=== PATIENT | male | born 1970 | race Two or more races ===

== ENCOUNTER 2025-03-24 10:53 | Inpatient (IN) | payer MEDICAID, OTHER ==
[2025-03-24] MEDS ORDERED: ACETAMINOPHEN TAB 325 MG TAB PO PRN (14:20)
[2025-03-24] MEDS ORDERED: MAGNESIUM HYDROXIDE 2,400 MG/30 ML CUP PO PRN (14:20)
[2025-03-24] MEDS ORDERED: LORazepam 2 MG/ML INJ IM PRN (14:20)
[2025-03-24] MEDS ORDERED: OLANZapine ODT 5 MG TAB PO PRN (14:20)
[2025-03-24] MEDS ORDERED: MAG HYDROX/AL HYDROX/SIMETH 355 ML BOTTLE PO PRN (14:20)
[2025-03-24] MEDS ORDERED: LORazepam 1 MG TAB PO PRN (14:20)
[2025-03-24] MEDS ORDERED: IBUPROFEN 600 MG TAB PO PRN (14:20)
[2025-03-24] MEDS ORDERED: OLANZapine 10 MG VIAL IM PRN (14:23)
[2025-03-24] MEDS: NICOTINE 21MG/24HR PATCH TRANSDERM SCH (16:11)
--- NOTE | 2025-03-25 01:26 | P.MDCNMH ---
History of Present Illness H&P Date: 03/25/25 54-year-old male coming in for mental health evaluation Patient minimally interactive denies any significant past medical history he denies any fever, chills, cough, sore throat, chest pain , trouble breathing , nausea , vomiting, abd pain , changes in urinary or bowel habits. Denies tobacco smoking illicit drugs or heavy alcohol 6 review of systems Pertinent positives as noted in HPI. All other systems were reviewed and are negative on exam Constitutional: No acute distress, conversant, pleasant Eyes: Anicteric sclerae, moist conjunctiva, Pupils equal round reactive to light Lungs: Clear to auscultation Clear to percussion Normal respiratory effort, no accessory muscle use Cardiovascular: Heart regular in rate and rhythm, No murmurs, gallops, or rubs No peripheral edema Abdominal: Soft Nontender, no guarding, rebound or rigidity Abdomen moving with respiration Normoactive bowel sounds Extremities: No digital cyanosis No clubbing Pedal pulses intact and symmetrical Radial pulses intact and symmetrical No calf tenderness Psychiatric: Alert and oriented to person, place and time Neuro Muscles Strength 5/5 in all 4 extremities Sensation to light touch grossly present throughout Cranial nerves II-XII grossly intact Assessment and plan Mental health evaluation management per psych Possible history of hypertension Continue metoprolol No labs available for review at this time Thank you for this consultation Past Medical History Past Medical History: Hypertension Additional Past Medical History / Comment(s): Reports history of falling in ditches, reports sleeping in [place] for the past 2 weeks, homeless, no support, no acces to housing, food, clothing or famiy support. History of Any Multi-Drug Resistant Organisms: None Reported Past Surgical History: No Surgical Hx Reported Past Anesthesia/Blood Transfusion Reactions: No Reported Reaction Smoking Status: Never smoker Medications and Allergies Home Medications Medication Instructions Recorded Confirmed Type Atorvastatin [Lipitor] 10 mg PO DAILY 03/24/25 03/24/25 History Metoprolol Succinate (ER) [Toprol 25 mg PO DAILY 03/24/25 03/24/25 History Xl] Sertraline [Zoloft] 200 mg PO DAILY 03/24/25 03/24/25 History fluPHENAZine HCl 2.5 mg PO DAILY 03/24/25 03/24/25 History Allergies Allergy/AdvReac Type Severity Reaction Status Date / Time No Known Allergies Allergy Verified 03/24/25 17:56 Physical Exam Vitals: Vital Signs Temp Pulse Resp BP Pulse Ox 03/24/25 13:49 97.3 F L 110 H 16 105/73 97 Intake and Output 03/24/25 03/24/25 03/25/25 14:59 22:59 06:59 Other: Weight 84.7 kg Cranial Nerve Examination - Cranial Nerves Cranial Nerve II- Optic: Intact Cranial Nerve III- Oculomotor: Intact Cranial Nerve IV- Trochlear: Intact Cranial Nerve V- Trigeminal: Intact Cranial Nerve - Abducens: Intact Cranial Nerve VII- Facial: Intact Cranial Nerve VIII- Auditory: Intact Cranial Nerve IX- Glossopharyngeal: Intact Cranial Nerve X- Vagus: Intact Cranial Nerve XI- Accessory: Intact Cranial Nerve XII- Hypoglossal: Intact
[2025-03-25] MEDS: METOPROLOL SUCCINATE (ER) 25 MG TAB.ER.24H PO SCH (08:10)
[2025-03-25 08:20] LABS: Basophils # (A) 0.04 10*3/uL (0.00-0.10); Basophils % (A) 0.9 %; Eosinophils # (A) 0.18 10*3/uL (0.04-0.35); Eosinophils % (A) 3.9 %; HCT 37.7 % (39.6-50.0); HGB 12.7 g/dL (13.0-17.0); Lymphocytes # (A) 1.84 10*3/uL (0.90-5.00); Lymphocytes % (A) 39.4 %; MCHC 33.7 g/dL (32.0-37.0); MCV 89.1 fL (80.0-97.0); Mean Platelet Volume 9.3 fL (9.5-12.2); Monocytes # (A) 0.47 10*3/uL (0.20-1.00); Monocytes % (A) 10.1 %; Neutrophils # (A) 2.13 10*3/uL (1.80-7.70); Neutrophils % (A) 45.5 %; Platelet Count 176 10*3/uL (140-440); RBC 4.23 10*6/uL (4.40-5.60); RDW 12.6 % (11.5-14.5); WBC 4.67 10*3/uL (4.50-10.00)
[2025-03-25 08:37] LABS: ALT 25 U/L (4-49); AST 28 U/L (17-59); African American GFR (CKD) >90 (>60 ml/min/1.73 sqM); Albumin 3.9 g/dL (3.5-5.0); Alkaline Phosphatase 62 U/L (38-126); Anion Gap 6 mmol/L; Bilirubin, Delta 0.2 mg/dL (0.0-0.2); Bilirubin,Unconjugated 0.4 mg/dL (0.0-1.1); Blood Urea Nitrogen 17 mg/dL (9-20); Calcium 9.1 mg/dL (8.4-10.2); Carbon Dioxide 30 mmol/L (22-30); Chloride 103 mmol/L (98-107); Glucose 109 mg/dL (74-99); Non-African American GFR(CKD) 89 (>60 ml/min/1.73 sqM); Potassium 3.8 mmol/L (3.5-5.1); Sodium 139 mmol/L (137-145); Total Bilirubin 0.6 mg/dL (0.2-1.3); Total Protein 6.4 g/dL (6.3-8.2)
--- NOTE | 2025-03-25 09:56 | P.HP ---
Psychiatric H&P - . H&P Date: 03/24/25 History & Physical: Allergies Allergy/AdvReac Type Severity Reaction Status Date / Time No Known Allergies Allergy Verified 03/24/25 17:56 Vital Signs Temp 97.1 F L 03/25/25 08:50 Pulse 112 H 03/25/25 08:50 Resp 16 03/25/25 08:50 BP 99/72 03/25/25 08:50 Pulse Ox 97 03/25/25 08:50 FiO2 Intake & Output 03/24/25 03/25/25 03/25/25 18:59 06:59 18:59 Weight 84.7 kg Laboratory Last Values WBC 4.67 10*3/uL (4.50-10.00) 03/25/25 08:01 RBC 4.23 10*6/uL (4.40-5.60) L 03/25/25 08:01 Hgb 12.7 g/dL (13.0-17.0) L 03/25/25 08:01 Hct 37.7 % (39.6-50.0) L 03/25/25 08:01 MCV 89.1 fL (80.0-97.0) 03/25/25 08:01 MCH 30.0 pg (27.0-32.0) 03/25/25 08:01 MCHC 33.7 g/dL (32.0-37.0) 03/25/25 08:01 Plt Count 176 10*3/uL (140-440) 03/25/25 08:01 MPV 9.3 fL (9.5-12.2) L 03/25/25 08:01 Immature Gran % (Auto) 0.2 % 03/25/25 08:01 Neutrophils % 45.5 % 03/25/25 08:01 Lymphocytes % 39.4 % 03/25/25 08:01 Monocytes % 10.1 % 03/25/25 08:01 Eosinophils % 3.9 % 03/25/25 08:01 Basophils % 0.9 % 03/25/25 08:01 Immature Gran # 0.01 10*3/uL (0.00-0.04) 03/25/25 08:01 Neutrophils # 2.13 10*3/uL (1.80-7.70) 03/25/25 08:01 Lymphocytes # 1.84 10*3/uL (0.90-5.00) 03/25/25 08:01 Monocytes # 0.47 10*3/uL (0.20-1.00) 03/25/25 08:01 Eosinophils # 0.18 10*3/uL (0.04-0.35) 03/25/25 08:01 Basophils # 0.04 10*3/uL (0.00-0.10) 03/25/25 08:01 Sodium 139 mmol/L (137-145) 03/25/25 08:01 Potassium 3.8 mmol/L (3.5-5.1) 03/25/25 08:01 Chloride 103 mmol/L (98-107) 03/25/25 08:01 Carbon Dioxide 30 mmol/L (22-30) 03/25/25 08:01 Anion Gap 6 mmol/L 03/25/25 08:01 BUN 17 mg/dL (9-20) 03/25/25 08:01 Creatinine 0.96 mg/dL (0.66-1.25) 03/25/25 08:01 Est GFR (CKD-EPI)AfAm >90 (>60 ml/min/1.73 sqM) 03/25/25 08:01 Est GFR (CKD-EPI)NonAf 89 (>60 ml/min/1.73 sqM) 03/25/25 08:01 Glucose 109 mg/dL (74-99) H 03/25/25 08:01 Calcium 9.1 mg/dL (8.4-10.2) 03/25/25 08:01 Total Bilirubin 0.6 mg/dL (0.2-1.3) 03/25/25 08:01 Conjugated Bilirubin 0.0 mg/dL (0.0-0.3) 03/25/25 08:01 Unconjugated Bilirubin 0.4 mg/dL (0.0-1.1) 03/25/25 08:01 Delta Bilirubin 0.2 mg/dL (0.0-0.2) 03/25/25 08:01 AST 28 U/L (17-59) 03/25/25 08:01 ALT 25 U/L (4-49) 03/25/25 08:01 Alkaline Phosphatase 62 U/L (38-126) 03/25/25 08:01 Total Protein 6.4 g/dL (6.3-8.2) 03/25/25 08:01 Albumin 3.9 g/dL (3.5-5.0) 03/25/25 08:01 TSH 1.660 mIU/L (0.465-4.680) 03/25/25 08:01 03/25/25 09:40 IDENTIFYING DATA: Patient is a 54-year-old white male HPI: The patient presented to the hospital voluntarily due to a suicide attempt. The patient notes that he tried to slit his throat yesterday with a kitchen knife. He notes that he has been depressed for over 6 months. This has gotten worse in the last 2 months after he was . He states that he has a history of bipolar disorder. Additionally, he notes when he is manic he gets angry, has fluctuations in his sleep, low energy, and slow speech. He notes that he has auditory hallucinations when he's manic that consist of voices inside his head, male and female, unknown with unknown subjects. He currently notes that his depression is 10/10 and his anxiety is 4/10 with 10 being worse. He notes with his anxiety consist of him worries consistently, he has trouble initiating and maintaining sleep, he gets muscle tension, he grinds his teeth, and feels fatigued. Currently he notes that he is getting 8 hours of sleep at night. He continues to feel fatigued. He notes that his appetite is good. He feels confused and has a hard time concentrating. He feels worthless. He has low self-esteem. He denies any crying but notes that he feels guilty. Currently he denies any suicidal or homicidal ideations. He denies any access to guns.. Patient denies any suicidal or homicidal ideations intent or plan. Review of systems patient was negative for OCD and PTSD. Overall, the patient had noted that he is glad to be alive. PAST PSYCHIATRIC HISTORY: Patient has a history of has a history of bipolar disorder. Has a history of being on Prolixin and Zoloft. He cannot remember the other medications he has been on in the past. The patient recently was released 2 weeks ago and has had 4 hospitalizations in the past. The patient has 2 prior suicide attempts one 6 months ago by trying to cut his throat and most recently. [facility]: as per ER note ALLERGIES: as per EMR CHEMICAL DEPENDENCY HISTORY: as per HPI FAMILY PSYCHIATRIC/SUBSTANCE USE HISTORY: Denies SOCIAL HISTORY: Patient was born and raised in in [place] and notes that his childhood was "good". He notes that he completed the 12th grade with average grades. 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 He has 2 children and has been twice. He was recently 2 months ago. He is currently unemployed and homeless. He believes in a higher power. He denies any service. MENTAL STATUS EXAM: General Appearance: Patient appears to be his stated age is alert, directable, and attempts to cooperate. Patient appears to have poor hygiene and grooming. Behavior: Patient is seated without any agitated behavior. Appears to be nervous and shaking and answering questions in a monotone concrete fashion. Speech: Patient's speech is fluent and nonpressured. Mood/Affect: Patient reports their mood is depressed, affect is congruent and constricted. Suicidality/Homicidality: Patient denies having any homicidal ideation intent or plan. Denies any suicidal ideations intent or plan Perceptions: Patient denies any visual hallucinations and denies any auditory hallucinations Though content/process: There is no evidence of any delusional thought content and thought process is linear and goal-directed. Memory and concentration: AOX3, grossly intact for the purposes of this session. Can spell "WORLD" backwards Judgment and insight: poor STRENGTHS/WEAKNESSES: strength is that patient is resilient. Weakness is that patient has poor judgment and is impulsive INTELLECT: average Diagnosis: Bipolar disorder type I most recent episode depressed with a history of psychotic features Generalized anxiety disorder Assessment: 54-year-old male presenting for the first time under voluntary conditions after a failed suicide attempt. The patient was most recently hospitalized 2 weeks ago and released. The patient is homeless and unemployed. His depression is currently severe and current presentation the patient is quite vegetative. It is felt that the patient is a risk to himself and requires hospitalization at this point. Additionally community resources will be needed prior to discharge. Patient does meet criteria for Bipolar disorder type I but additionally he has HUNTER. There are some questions whether he is actually Schizoaffective disorder with depressive features. PLAN: -Patient is admitted under [voluntary] status to MHU for stabilization of psychiatric symptoms and safety. Patient has signed adult voluntary form and medication consent and is placed in patient's chart. -Medications : Restart Prolixin 2.5 mg once daily Restart Sertraline 200 mg once daily -Ativan and Zyprexa PRN for agitation/aggression -Patient was informed of the risks, benefits and side effects of the medication and patient verbally consented to taking the medications. Patient signed med consent form and was placed in chart. -Internal Medicine consult to perform medical evaluation and physical. -NRT - not needed as patient does not smoke -SW on board for discharge planning. Encourage patient to participate in groups to work on coping skills.
[2025-03-25 15:24] LABS: Chol/HDL Ratio 4.98 Ratio
[2025-03-25 15:25] LABS: LDL Cholesterol,Calculated 107.3 mg/dL (0.0-131.0)
[2025-03-25] MEDS: ATORVASTATIN 10 MG TAB PO SCH (17:51)
[2025-03-26] MEDS: SERTRALINE 100 MG TAB PO SCH (08:33)
--- NOTE | 2025-03-26 13:24 | P.PN ---
Progress Note - Text Progress Note Date: 03/26/25 Interval History: Patient was seen wandering the hallways and was directable and agreeable to katty bailey with scenario writer in the office. The patient presented brighter when he came up and notes that he is feeling "better". He notes that his depression has gone from 10/10 to 8/10. He notes that his anxiety has gone from 4/10 to 5/10. He notes that his sleep appears to be fractured and he has had chronic problems with this. He notes a slight increase in energy. His appetite remains the same. His concentration has gone from 4 to "okay". He denies any ongoing suicidal thoughts. He denies any ongoing side effects with the medications. He notes that he is always dealt with restlessness. Mental Status Exam: General Appearance: [Patient appears to be stated age is alert, directable, and cooperative.] Behavior: [Patient is calmly seated without any agitated behavior.] Speech: Patient's speech is fluent and nonpressured. Mood/Affect: Mood is improving mildly, affect is congruent and constricted. Suicidality/Homicidality: Patient denies having any suicidal or homicidal ideation intent or plan. Perceptions: Patient denies any visual hallucinations [and denies any auditory hallucinations] Though content/process: [There is no evidence of any delusional thought content and thought process is linear and goal-directed.] Memory and concentration: AOX3, grossly intact for the purposes of this session Judgment and insight: Improving mildly Diagnosis: Bipolar disorder type I most recent episode depressed with a history of psychotic features Generalized anxiety disorder Assessment: The patient appears to be improving but still struggles with sleep. It is too early for discharge patient continues to have severe depression. PLAN: -Patient is admitted under voluntary status to MHU for stabilization of psychiatric symptoms and safety. Patient has signed adult voluntary form and medication consent and is placed in patient's chart. -Medications : Continue Prolixin 2.5 mg once daily Sertraline 200 mg once daily Start Trazodone 50 mg take 1 tablet by mouth at bedtime as needed for insomnia -Ativan and Zyprexa PRN for agitation/aggression -Patient was informed of the risks, benefits and side effects of the medication and patient verbally consented to taking the medications. Patient signed med consent form and was placed in chart. -Internal Medicine consult to perform medical evaluation and physical. -NRT - not needed as patient does not smoke -SW on board for discharge planning. Encourage patient to participate in groups to work on coping skills.
[2025-03-26] MEDS: traZODone HCL 50 MG TAB PO PRN (20:34)
[2025-03-27 11:05] VITALS: BMI 25.7
--- NOTE | 2025-03-27 13:18 | P.PN ---
Progress Note - Text Progress Note Date: 03/27/25 Interval History: Patient was seen in bed and was directable and agreeable to speak with instructional writer in the room. Patient displays flat affect, unable to get out of bed to speak with instructional writer in the office due to ongoing depressive symptoms which he expresses as high today. He reports sleep difficulties described as waking up on/off throughout the night. He feels as though this admission was the result of a recent divorce that led to homelessness. He has been largely isolative to his room, not attending groups. He reports good appetite. At this time patient denies any suicidal or homicidal ideations, intent or plan. Patient denies any auditory, visual hallucinations and denies any paranoia or delusions. Patient denies any side effects from the medications and has been compliant with meds. Mental Status Exam: General Appearance: Patient appears to be stated age is alert, directable, and cooperative. Behavior: Patient is calmly seated without any agitated behavior. Speech: Patient's speech is fluent and nonpressured. Mood/Affect: Mood is improving mildly, affect is congruent and flat. Suicidality/Homicidality: Patient denies having any suicidal or homicidal ideation intent or plan. Perceptions: Patient denies any visual hallucinations and denies any auditory hallucinations Though content/process: There is no evidence of any delusional thought content and thought process is linear. Memory and concentration: AOX3, grossly intact for the purposes of this session Judgment and insight: Improving mildly Assessment Bipolar 1 disorder, current episode depressed Generalized anxiety disorder Plan: -Patient continues to meet criteria for inpatient psychiatric admission for symptom stabilization and safety. Patient has signed adult voluntary form and medication consent and was placed in patient's chart. -Medications: Continue Zoloft 200 mg daily for depression, Prolixin 2.5 mg daily for mood stabilization, start trazodone 100 mg at bedtime for insomnia -When necessary Ativan and Zyprexa for agitation/aggression. -Labs: TSH, A1c, lipid all WNL -SW on board for discharge planning. Encouraged the patient to participate in milieu. Anticipate discharge to penitentiary in 2-3 days
[2025-03-27] MEDS: traZODone HCL 100 MG TAB PO SCH (20:31)
--- NOTE | 2025-03-28 12:32 | P.PN ---
Progress Note - Text Progress Note Date: 03/28/25 Interval History: Patient was seen in bed and was directable and agreeable to speak with appeals writer in the office. Patient initially was resistant to meet with appeals writer in office however with encouragement he was able to walk with appeals writer to the office. He does mention feeling better today, still reporting high depressive symptoms however lessening in intensity. Emissions Technician helped patient set a goal to attend at least 1 group today. He continues to be largely isolative to his room with psychomotor slowing. He does mention sleeping better last night with the trazodone. He states he is homeless and is interested in exploring shelters upon discharge. At this time patient denies any suicidal or homicidal ideations, intent or plan. Patient denies any auditory, visual hallucinations and denies any paranoia or delusions. Patient denies any side effects from the medications and has been compliant with meds. Mental Status Exam: General Appearance: Patient appears to be stated age is alert, directable, and cooperative. He is disheveled Behavior: Patient is calmly seated without any agitated behavior. There is evidence of psychomotor slowing Speech: Patient's speech is fluent and nonpressured. Mood/Affect: Mood is improving mildly, affect is congruent and constricted. Suicidality/Homicidality: Patient denies having any suicidal or homicidal ideation intent or plan. Perceptions: Patient denies any visual hallucinations and denies any auditory hallucinations Though content/process: There is no evidence of any delusional thought content and thought process is linear and logical Memory and concentration: AOX3, grossly intact for the purposes of this session Judgment and insight: Improving mildly Assessment Bipolar 1 disorder, current episode depressed Generalized anxiety disorder Plan: -Patient continues to meet criteria for inpatient psychiatric admission for symptom stabilization and safety. Patient has signed adult voluntary form and medication consent and was placed in patient's chart. -Medications: Continue Zoloft 200 mg daily for depression, Prolixin 2.5 mg daily for mood stabilization, trazodone 100 mg at bedtime -When necessary Ativan and Zyprexa for agitation/aggression. -Labs: TSH, A1c, lipid all WNL -SW on board for discharge planning. Encouraged the patient to participate in milieu. Anticipate discharge to detention in 1-2 days
--- NOTE | 2025-03-29 10:32 | P.PN ---
Progress Note - Text Progress Note Date: 03/29/25 Interval History: Patient was seen wandering the hallways and was directable and agreeable to sp leo with senior underwriter in the office. He continues to express feeling better, reporting no worsening in depressive or anxiety symptoms. He did not attend any groups yesterday which he states was due to his anxiety in social situations however this was a goal set for today. He states being a loner with poor support network. He has not spoken to his children in years and reports feeling sad about this and was encouraged to reconnect with them. He otherwise reports good sleep and appetite. At this time patient denies any suicidal or homicidal ideations, intent or plan. Patient denies any auditory, visual hallucinations and denies any paranoia or delusions. Patient denies any side effects from the medications and has been compliant with meds. Mental Status Exam: General Appearance: Patient appears to be stated age is alert, directable, and cooperative. He is disheveled Behavior: Patient is calmly seated without any agitated behavior. There is evidence of psychomotor slowing Speech: Patient's speech is fluent and nonpressured. Mood/Affect: Mood is improving mildly, affect is congruent and constricted. Suicidality/Homicidality: Patient denies having any suicidal or homicidal ideation intent or plan. Perceptions: Patient denies any visual hallucinations and denies any auditory hallucinations Though content/process: There is no evidence of any delusional thought content and thought process is linear and logical. Memory and concentration: AOX3, grossly intact for the purposes of this session Judgment and insight: Improving mildly Assessment Bipolar 1 disorder, current episode depressed Generalized anxiety disorder r/o social anxiety disorder Plan: -Patient continues to meet criteria for inpatient psychiatric admission for symptom stabilization and safety. Patient has signed adult voluntary form and medication consent and was placed in patient's chart. -Medications: Continue zoloft 200 mg daily for depression/anxiety, prolixin 2.5 mg daily for mood stabilization -When necessary atican and zyprexa for agitation/aggression. -Labs: tsh, a1c., lipid wnl -SW on board for discharge planning. Encouraged the patient to participate in milieu. Anticipate discharge to detention tomorrow.
[2025-03-29 16:56] VITALS: RESP 16
[2025-03-30 10:29] VITALS: BP 90/65; PULSE 122; TEMP 97.5
--- NOTE | 2025-03-30 12:57 | P.DS ---
Providers Date of admission: 03/24/25 13:40 Expected date of discharge: 03/30/25 Attending physician: Rosalina Osullivan MD Consults: 03/24/25 14:20 Consult Physician Routine Consulting Provider: Chelle Vanegas Consult Reason/Comments: History and Physical New Admission Do you want consulting provider notified?: Yes Primary care physician: Stated None - Discharge Diagnosis(es) (1) Bipolar 1 disorder, depressed, severe Current Visit: Yes Status: Acute Priority: High (2) HUNTER (generalized anxiety disorder) Current Visit: Yes Status: Acute Priority: Medium Hospital Course: Admission HPI: Admission note was completed by Dr. Clay "The patient presented to the hospital voluntarily due to a suicide attempt. The patient notes that he tried to slit his throat yesterday with a kitchen knife. He notes that he has been depressed for over 6 months. This has gotten worse in the last 2 months after he was . He states that he has a history of bipolar disorder. Additionally, he notes when he is manic he gets angry, has fluctuations in his sleep, low energy, and slow speech. He notes that he has auditory hallucinations when he's manic that consist of voices inside his head, male and female, unknown with unknown subjects. He currently notes that his depression is 10/10 and his anxiety is 4/10 with 10 being worse. He notes with his anxiety consist of him worries consistently, he has trouble initiating and maintaining sleep, he gets muscle tension, he grinds his teeth, and feels fatigued. Currently he notes that he is getting 8 hours of sleep at night. He continues to feel fatigued. He notes that his appetite is good. He feels confused and has a hard time concentrating. He feels worthless. He has low self-esteem. He denies any crying but notes that he feels guilty. Currently he denies any suicidal or homicidal ideations. He denies any access to guns.. Patient denies any suicidal or homicidal ideations intent or plan. Review of systems patient was negative for OCD and PTSD. Overall, the patient had noted that he is glad to be alive." Hospital course: Upon admission to the unit patient was directable and agreeable to commence t reatment and signed adult voluntary form.. Patient was largely isolative to his room however he did follow unit protocol. Patient was compliant with the medications and denied any side effects throughout hospital course. Patient was started on Zoloft 200 mg daily for depression/anxiety, Prolixin 2.5 mg daily for mood stabilization. Patient was minimally engaged in therapy, not attending groups. Patient was also seen by medical team for history and physical exam. Throughout the course of the hospitalization patient gradually improved with regards to mood, anxiety, sleep and returned back to their baseline level of functioning. On the day of discharge patient denied any suicidal or homicidal ideations intent or plan denied any auditory or visual hallucinations. The patient denied any access to guns or weapons. Patient denied any paranoia and did not endorse any delusions. Patient does not have a significant history of substance abuse and was counseled on abstaining from all substances including alcohol and marijuana. Patient was also counseled on the medications and need for regular compliance and was encouraged to follow-up with their outpatient appointment for mental health and also for primary care. Patient to be discharged to halfway and will follow-up with [facility]. Mental status exam: General Appearance: Patient appears to be stated age is alert, pleasant, and cooperative. Patient is in no acute distress and has poor hygiene and grooming Behavior: Patient is calmly seated without any agitated behavior. Speech: Patient's speech demonstrates increased latency, low volume, nonpressured. Mood/Affect: Patient reports their mood is "good", affect is congruent and constricted. Suicidality/Homicidality: Patient denies having any suicidal or homicidal ideation intent or plan. Perceptions: Patient denies any auditory or visual hallucinations. Though content/process: There is no evidence of any delusional thought content and thought process is linear. Memory and concentration: AOX3, grossly intact for the purposes of this session. Can spell "WORLD" backwards correctly. Judgment and insight: Fair Impression: Bipolar 1 disorder, current episode depressed Generalized anxiety disorder Rule out social anxiety disorder Plan: -Continue with discharge today as patient has improved and stabilized psychiatrically and is not currently an imminent threat to themself and/or others. -Continue medications: Prolixin 2.5 mg daily, Zoloft 200 mg daily -Patient was counseled on the need for medication compliance and appropriate follow-up at mental health and also primary care for medical issues. Patient verbalized understanding and agreed. -Social work to help coordinate patients discharge today. also to ensure safe home environment that guns/weapons are either removed from the home or locked away. Social work also to arrange for patients follow up appointments with [facility] for psychiatric care along with follow up with primary care provider. -Patient counseled on abstaining from recreational drugs and marijuana and alcohol. Was informed/educated on the adverse effects on their physical and mental health. Patient verbally agreed and understood. -Patient was instructed to return to the hospital or seek immediate medical care if their psychiatric or medical symptoms do worsen or reoccur. Abnormal Labs 03/25/25 03/25/25 08:01 08:01 RBC 4.23 L Hgb 12.7 L Hct 37.7 L MPV 9.3 L Glucose 109 H HDL Cholesterol 32.30 L Allergies Allergy/AdvReac Type Severity Reaction Status Date / Time No Known Allergies Allergy Verified 03/24/25 17:56 Vital Signs Temp 97.5 F L 03/30/25 09:00 Pulse 122 H 03/30/25 09:00 Resp 16 03/30/25 09:00 BP 90/65 03/30/25 09:00 Pulse Ox 97 03/30/25 09:00 FiO2 Patient Condition at Discharge: Stable Plan - Discharge Summary Discharge Rx Participant: Yes New Discharge Prescriptions: New traZODone HCL [Desyrel] 100 mg PO HS 30 Days #30 tab Continue fluPHENAZine HCl 2.5 mg PO DAILY 30 Days #30 tab Metoprolol Succinate (ER) [Toprol XL] 25 mg PO DAILY 30 Days #30 tab Atorvastatin [Lipitor] 10 mg PO DAILY 30 Days #30 tab Sertraline [Zoloft] 200 mg PO DAILY 30 Days #60 tab Discharge Medication List Atorvastatin [Lipitor] 10 mg PO DAILY 30 Days #30 tab 03/30/25 [Rx] Metoprolol Succinate (ER) [Toprol XL] 25 mg PO DAILY 30 Days #30 tab 03/30/25 [Rx] Sertraline [Zoloft] 200 mg PO DAILY 30 Days #60 tab 03/30/25 [Rx] fluPHENAZine HCl 2.5 mg PO DAILY 30 Days #30 tab 03/30/25 [Rx] traZODone HCL [Desyrel] 100 mg PO HS 30 Days #30 tab 03/30/25 [Rx] Follow up Appointment(s)/Referral(s): [facility]Other[facility] - 1 Week Patient Instructions/Handouts: Bipolar Disorder (DC), Generalized Anxiety Disorder (GEN) Activity/Diet/Wound Care/Special Instructions: Avoid the use of street drugs and alcohol. Take all medications as prescribed. When you are in need of refills on your medications, please contact your medical provider and/or outpatient psychiatrist/provider to have this done. Please go to your scheduled outpatient appointment for aftercare treatment. If symptoms return or become worse, call the crisis line at and/or go to the nearest emergency room for evaluation. National Suicide Hotline [address] [facility] confidentiality statement: "The information contained in this communication, including attachments, is confidential, may be privileged, and is intended only for the use of the named recipient(s). Unauthorized use, disclosure, forwarding or copying is strictly prohibited and may be unlawful. If you have received this communication in error, please notify me IMMEDIATELY at the phone number or pager listed above. Discharge Disposition: HOME SELF-CARE
== END 2025-03-30 16:12 | disposition home or self-care (01) | DRG 753 ==
LOC: 3MHU 13:40
PROVIDERS: ADMIT Psychiatry & Neurology Psychiatry; ATTEND Psychiatry & Neurology Psychiatry
DX: F31.4 Bipolar disorder, current episode depressed, severe, without psychotic features (principal); F41.1 Generalized anxiety disorder; I10 Essential (primary) hypertension; G47.9 Sleep disorder, unspecified; R45.851 Suicidal ideations; Z56.0 Unemployment, unspecified; Z59.00 Homelessness unspecified; Z79.899 Other long term (current) drug therapy; Z91.51 Personal history of suicidal behavior; Z91.81 History of falling; Z63.8 Other specified problems related to primary support group; Z71.89 Other specified counseling
CPT/HCPCS: 80053; 80061; 82248; 83036; 84443; 85025